=== PATIENT | male | born 1965 | race Caucasian/White ===

== ENCOUNTER 2025-04-21 10:00 | Outpatient (CLI) | payer OTHER, SELFPAY ==
[2025-04-21 15:00] LABS: Hematocrit 38.7 % (42.0-52.0); Hemoglobin 12.0 g/dL (14.1-18.0); Immature Granulocytes % 0 %; Mean Corpuscular HGB Conc 31.0 g/dL (31.8-35.4); Mean Corpuscular Hemoglobin 26.5 pg (27.0-31.2); Mean Corpuscular Volume 85.6 fl (80-94); Nucleated Red Blood Cells % 0 %; Platelet Count 83 K/mm3 (142-424); Red Blood Count 4.52 M/mm3 (4.60-6.20); Red Cell Distribution Width-SD 56.8 fL; White Blood Count 2.7 K/mm3 (4.8-10.8)
[2025-04-21 16:08] LABS: Alanine Aminotransferase 43 U/L (12-78); Albumin Level 3.5 g/dl (3.5-5.0); Albumin/Globulin Ratio 0.6 (1.1-1.8); Alkaline Phosphatase 186 U/L (38-126); Anion Gap 10.2 mEq/L (5-15); Aspartate Amino Transferase 130 U/L (17-59); Bilirubin,Total 2.9 mg/dl (0.2-1.3); Blood Urea Nitrogen 6 mg/dl (9-20); Calcium 8.9 mg/dl (8.4-10.2); Carbon Dioxide 29 mmol/L (22.0-30.0); Chloride 104 mmol/L (98-107); Cholesterol 151 mg/dl (140-200); Creatinine,Serum 0.70 mg/dl (0.66-1.25); Estimated Glomerular Filt Rate 115 ml/min (>60); GFR (African American) 139 ML/MIN (>60); Globulin 5.6 g/dL (1.3-3.2); Glucose 113 mg/dl (74-100); HDL Cholesterol 30 mg/dl (40-60); Potassium 4.2 mmoL/L (3.5-5.1); Sodium 139 mmol/L (136-145); Total Protein,Serum 9.1 g/dl (6.3-8.2); Triglycerides 102 mg/dl (30-150)
[2025-04-21 16:11] LABS: Anisocytosis 1+; Total Cells Counted 100
[2025-04-21 16:12] LABS: Hypochromasia 1+; Macrocytosis 1+; Poikilocytosis 1+; Polychromasia 1+
[2025-04-21 16:13] LABS: Microcytosis 1+
[2025-04-21 16:35] LABS: Thyroid Stimulating Hormone 1.69 uIU/mL (0.465-4.68)
[2025-04-21 16:54] LABS: Vitamin B12 572 pg/mL (239-931)
--- OUTSIDE RECORDS SUMMARY | 2025-04-22 13:06 | XMS_ITS | Clinical Summary ---
Author Organization [facility] [place] Address [address] [facility] [address] [place] [address] Phone Care Team Providers Care Branch Operations Manager Name Role Phone Anthony Barfield Primary Care Provider [phone] Allergies No known active allergies Medications lisinopril (PRINIVIL;ZESTR IL) 10 mg Oral Tablet Take 10 mg by mouth nightly. Active tiZANidine (ZANAFLEX) 4 mg Oral TabletIndicatio ns:prn 4 mg. Indications: prn 6 Active aspirin 325 mg Oral Tablet Take 1 Tab by mouth 2 times daily. 28 Tab 6 Active Additional Information Patient not taking.Reason: Pt electing to not take the medication, Reported on 05/15/2017 food supplement (ENSURE HIGH PROTEIN) Oral Drink 1 bottle or can (8 ounces) of Ensure High Protein by mouth 2 times daily for 9 days. 18 Bottle 6 6 Active Additional Information Patient not taking.Reason: Pt electing to not take the medication, Reported on 05/15/2017 dicyclomine (BENTYL) 20 mg Oral Tablet Take 20 mg by mouth 2 times daily. Active ondansetron (ZOFRAN ODT) 4 mg Oral Tablet, Rapid Dissolve Place 1 Tab inside cheek every 6 hours as needed for Nausea. 20 Tab 7 Active Additional Information Patient not taking.Reason: Pt electing to not take the medication, Reported on 05/15/2017 sodium,potassiu m,mag sulfates 17.5-3.13-1.6 gram Oral Recon Soln Take 6 oz by mouth 2 times daily. Follow instructions given at MD office 1 box 7 Active Additional Information Patient not taking.Reported on 04/22/2019 Active Problems Problem Noted Date Diagnosed Date Primary osteoarthritis of left hip 05/18/2016 Status post left hip replacement 05/18/2016 Essential hypertension 05/18/2016 Alcohol abuse 05/18/2016 Surgical History Surgery Date Site/Laterality Comments COLONOSCOPY HIP ARTHROPLASTY 11/04/2015 Right RIGHT TOTAL HIP REPLACEMENT ; Surgeon: Venu Paul MD; Location: [facility]; Service: Orthopedics Medical devices from this surgery are in the Medical Devices section. HIP ARTHROPLASTY 05/18/2016 Left LEFT TOTAL HIP REPLACEMENT ; Surgeon: Venu Paul MD; Location: [facility]; Service: Orthopedics Medical devices from this surgery are in the Medical Devices section. UPPER GASTROINTESTINAL ENDOSCOPY Medical History Medical History Date Comments Hypertension Heartburn occasional Family History Medical History Relation Name Comments Anesth Problems Neg Hx Colon Cancer Neg Hx Esophageal Cancer Neg Hx Social History Tobacco Use Types Packs/Day Years Used Date Smoking Tobacco: Former Cigarettes Q uit: 11/03/2005 Smokeless Tobacco: Current Chew Alcohol Use Standard Drinks/Week Comments Yes 0 (1 standard drink = 0.6 oz pur e alcohol) at least a twelve pack a day Sex and Gender Information Value Date Recorded Sex Assigned at Not on file Legal Sex Male 3:38 PM EDT Gender Identity Not on file Sexual Orientation Not on file Obstetrics History Last Filed Vital Signs Vital Sign Reading Time Taken Comments Blood Pressure 124/90 04/22/2019 10:27 AM EDT Pulse 75 04/22/2019 10:27 AM EDT Temperature 36.6 C (97.8 F) 04/22/2019 10:27 AM EDT Respiratory Rate 16 04/22/2019 10:2 7 AM EDT Oxygen Saturation 98% 04/22/2019 10: 27 AM EDT Inhaled Oxygen Concentration - - Weight 105.8 kg (233 lb 3.2 oz) 019 10:27 AM EDT Height 180.3 cm (5' 11 ) 04/22/2019 10: 27 AM EDT Body Mass Index 32.52 04/22/2019 10:27 AM EDT Plan of Treatment Health Maintenance Due Date Last Done Comments Annual Wellness Exam 1966 Hepatitis C Screening 1981 DTaP/TDaP/Td (1 - Tdap) 1982 Cologuard 2008 Colon Cancer Screening 2008 Colonoscopy 2008 FIT 2008 Sigmoidoscopy 2008 Virtual Colonography 2008 Pneumococcal Vaccine 50+ (1 of 1 - PCV) 2013 Zoster (1 of 2) 2013 COVID-19 Vaccine (1 - 2023-2 5 season) 2025 Influenza Vaccine (#1) 2025 Hepatitis B Vaccine Aged Out No longe r eligible based on patient's age to complete this topic Meningococcal B Vaccine Aged Out No l onger eligible based on patient's age to complete this topic Goals Goal Patient Goal Type Associated Problems Recent Progress Patient-Stated? Author Blood Pressure < 140/90 Blood Pressure 124/90(2018 10:27 AM EDT) No Maureen Napier MA Maintain a healthy diet, exercise regularly and maintain an ideal body weight General No Maureen Napier MA Stay Tobacco Free Lifestyle No Maureen Napier MA Medical Devices Implanted Type Area A P Manager Device Identifier Shelf Expiration Date Model / Serial / Lot Shell Acetabular Hole Cluster Hemispherical Tritanium F 58mm - [id number] Implanted:Qty: 1 on 11/04/2015 by Venu Paul MD at [facility] Right: Hip EVONNE:ORTHOPED [employer] 08/21/2020 502-03-58F / / [id number] Screw Bone Cancellous 6.5mm X 30mm - [id number] Implanted:Qty: 1 on 11/04/2015 by Venu Paul MD at [facility] Right: Hip EVONNE:ORTHOPED ICS 08/05/2019 4113-6328- 1 / / [id number] Insert Trident X 3 0-Degree 36mm - [id number] Implanted:Qty: 1 on 11/04/2015 by Venu Paul MD at [facility] Right: Hip EVONNE:ORTHOPED ICS 10/13/2020 623-00-36F / / [id number] Stem Femoral Accolade Ii 127 Degree Size 6 - [id number] Implanted:Qty: 1 on 11/04/2015 by Venu Paul MD at [facility] Right: Hip EVONNE:ORTHOPED [facility] 05/26/2020 1909-7722 / / [id number] Head V40 Ceramic Delta Biolox 36mm/-2.5 - [id number] Implanted:Qty: 1 on 11/04/2015 by Venu Paul MD at [facility] Right: Hip EVONNE:ORTHOPED [facility] 08/29/2020 6570-0-436 / / [id number] Stem Femoral Accolade Ii 127 Degree Size 6 - [id number] Implanted:Qty: 1 on 05/18/2016 by Venu Paul MD at [facility] Left: Hip EVONNE:ORTHOPED [facility] 03/08/2021 0303-5052 / / [id number] Shell Acetabular Hole Cluster Hemispherical Tritanium F 58mm - [id number] Implanted:Qty: 1 on 05/18/2016 by Venu Paul MD at [facility] Left: Hip EVONNE:ORTHOPED [facility] 04/25/2021 502-03-58F / / [id number] Insert Trident X 3 0-Degree 36mm - [id number] Implanted:Qty: 1 on 05/18/2016 by Venu Paul MD at [facility] Left: Hip EVONNE:ORTHOPED [facility] 01/08/2021 623-00-36F / / [id number] Screw Bone Cancellous 6.5mm X 30mm - [id number] Implanted:Qty: 1 on 05/18/2016 by Venu Paul MD at [facility] Left: Hip EVONNE:ORTHOPED [facility] 03/21/2021 7465-0091- 1 / / [id number] Head V40 Ceramic Delta Biolox 36mm/-5 - [id number] Implanted:Qty: 1 on 05/18/2016 by Venu Paul MD at [facility] Left: Hip EVONNE:ORTHOPED [employer]CS 03/15/2021 6570-0-036 / / [id number] Advance Directives For more information, please contact: [phone] * Full Code (Latest Code Status on File) Date Activated Date Inactivated Comments 05/18/2016 10:58 AM 05/19/2016 5:47 PM * Full Code Date Activated Date Inactivated Comments 11/04/2015 2:22 PM 11/05/2015 8:06 PM Care Teams Branch Operations Manager Relationship Specialty Start Date End Date Anthony Barfield [address] [place] [address] [address] [place] [id number] PCP - General 05/27/09
== END 2025-04-21 23:59 | disposition home or self-care (01) ==
LOC: LAB.DROPOF 04-22 13:03
PROVIDERS: PCP Nurse Practitioner; Visit Provider Nurse Practitioner
DX: I10 Essential (primary) hypertension (principal); E66.9 Obesity, unspecified; Z86.39 Personal history of other endocrine, nutritional and metabolic disease; Z12.5 Encounter for screening for malignant neoplasm of prostate
CPT/HCPCS: 80053; 80061; 82607; 84443; 85007; 85025; G0103

== ENCOUNTER 2025-04-28 14:20 | Outpatient (CLI) | payer OTHER, SELFPAY ==
--- OUTSIDE RECORDS SUMMARY | 2025-04-28 14:23 | XMS_ITS | Clinical Summary ---
Author Organization [facility] [place] Address [address] [facility] [address] [place] [address] Phone Care Team Providers Care Wiper Blender Name Role Phone Anthony Barfield Primary Care Provider [phone] Allergies No known active allergies Medications lisinopril [...] Napier MA Medical Devices Implanted Type Area [place] Manager Device Identifier Shelf Expiration Date Model / Serial / Lot Shell Acetabular Hole Cluster Hemispherical Tritanium F 58mm - [id number] Implanted:Qty: 1 on 11/04/2015 by Venu Paul MD at [facility] Right: Hip EVONNE:ORTHOPED ICS 08/21/2020 502-03-58F / / [id number] Screw Bone Cancellous 6.5mm X 30mm - [id number] Implanted:Qty: 1 on 11/04/2015 by Venu Paul MD at [facility] Right: Hip EVONNE:ORTHOPED ICS 08/05/2019 1619-9220- 1 / / [id number] Insert Trident X 3 0-Degree 36mm - [id number] Implanted:Qty: 1 on 11/04/2015 by Venu Paul MD at [facility] Right: Hip EVONNE:ORTHOPED ICS 10/13/2020 623-00-36F / / [id number] Stem Femoral Accolade Ii 127 Degree Size 6 - [id number] Implanted:Qty: 1 on 11/04/2015 by Venu Paul MD at [facility] Right: Hip EVONNE:ORTHOPED [facility] 05/26/2020 1966-9835 / / [id number] Head V40 Ceramic Delta Biolox 36mm/-2.5 - [id number] Implanted:Qty: 1 on 11/04/2015 by Venu Paul MD at [facility] Right: Hip EVONNE:ORTHOPED [facility] 08/29/2020 6570-0-436 / / [id number] Stem Femoral Accolade Ii 127 Degree Size 6 - [id number] Implanted:Qty: 1 on 05/18/2016 by Venu Paul MD at [facility] Left: Hip EVONNE:ORTHOPED [facility] 03/08/2021 1302-7135 / / [id number] Shell Acetabular Hole Cluster Hemispherical Tritanium F 58mm - [id number] Implanted:Qty: 1 on 05/18/2016 by Venu Paul MD at [facility] Left: Hip EVONNE:ORTHOPED [facility] 04/25/2021 502-03-58F / / [id number] Insert Trident X 3 0-Degree 36mm - [id number] Implanted:Qty: 1 on 05/18/2016 by Venu Paul MD at [facility] Left: Hip EVONNE:ORTHOPED [facility] 01/08/2021 623-00-36F / / [id number] Screw Bone Cancellous 6.5mm X 30mm - [id number] Implanted:Qty: 1 on 05/18/2016 by Venu Paul MD at [facility] Left: Hip EVONNE:ORTHOPED [facility] 03/21/2021 2972-5130- 1 / / [id number] Head V40 Ceramic Delta Biolox 36mm/-5 - [id number] Implanted:Qty: 1 on 05/18/2016 by Venu Paul MD at [facility] Left: Hip EVONNE:ORTHOPED [employer]CS 03/15/2021 6570-0-036 / / [id number] Advance Directives For more information, please contact: [phone] * Full Code (Latest Code Status on File) Date Activated Date Inactivated Comments 05/18/2016 10:58 AM 05/19/2016 5:47 PM * Full Code Date Activated Date Inactivated Comments 11/04/2015 2:22 PM 11/05/2015 8:06 PM Care Teams Wiper Blender Relationship Specialty Start Date End Date Anthony Barfield [address] [place] [address] [address] [place] [id number] PCP - General 05/27/09
[2025-04-28 16:36] LABS: Reticulocyte % (Auto) 2.5 % (0.9-3.2)
[2025-04-28 17:07] LABS: Iron 77 ug/dL (49-181)
[2025-04-28 17:17] LABS: Total Iron Binding Capacity 322 ug/dL (261-462)
[2025-04-28 17:46] LABS: Ferritin 46.2 ng/ml (17.9-464)
[2025-04-28 18:36] LABS: Folate 10.50 ng/mL
== END 2025-04-28 23:59 | disposition home or self-care (01) ==
PROVIDERS: PCP Nurse Practitioner; Visit Provider Internal Medicine Medical Oncology
DX: D61.818 Other pancytopenia (principal); I10 Essential (primary) hypertension
CPT/HCPCS: 36415; 82043; 82570; 82728; 82746; 83010; 83540; 83550; 83615; 85044; 86880

== ENCOUNTER 2025-05-01 09:42 | Outpatient (CLI) | payer OTHER, SELFPAY ==
--- OUTSIDE RECORDS SUMMARY | 2025-05-01 09:43 | XMS_ITS | Clinical Summary ---
Author Organization [facility] [place] Address [address] [facility] [address] [place] [address] Phone Care Team Providers Care Joinery Machinist Name Role Phone Anthony Barfield Primary Care Provider [phone] Allergies No known active allergies Medications lisinopril [...] Napier MA Medical Devices Implanted Type Area Statistical Engineer Device Identifier Shelf Expiration Date Model / Serial / Lot Shell Acetabular Hole Cluster Hemispherical Tritanium F 58mm - [id number] Implanted:Qty: 1 on 11/04/2015 by Venu Paul MD at [facility] Right: Hip EVONNE:ORTHOPED ICS 08/21/2020 502-03-58F / / [id number] Screw Bone Cancellous 6.5mm X 30mm - [id number] Implanted:Qty: 1 on 11/04/2015 by Venu Paul MD at [facility] Right: Hip EVONNE:ORTHOPED ICS 08/05/2019 6710-7478- 1 / / [id number] Insert Trident X 3 0-Degree 36mm - [id number] Implanted:Qty: 1 on 11/04/2015 by Venu Paul MD at [facility] Right: Hip EVONNE:ORTHOPED ICS 10/13/2020 623-00-36F / / [id number] Stem Femoral Accolade Ii 127 Degree Size 6 - [id number] Implanted:Qty: 1 on 11/04/2015 by Venu Paul MD at [facility] Right: Hip EVONNE:ORTHOPED [facility] 05/26/2020 5691-2723 / / [id number] Head V40 Ceramic Delta Biolox 36mm/-2.5 - [id number] Implanted:Qty: 1 on 11/04/2015 by Venu Paul MD at [facility] Right: Hip EVONNE:ORTHOPED [facility] 08/29/2020 6570-0-436 / / [id number] Stem Femoral Accolade Ii 127 Degree Size 6 - [id number] Implanted:Qty: 1 on 05/18/2016 by Venu Paul MD at [facility] Left: Hip EVONNE:ORTHOPED [facility] 03/08/2021 6439-8960 / / [id number] Shell Acetabular Hole Cluster Hemispherical Tritanium F 58mm - [id number] Implanted:Qty: 1 on 05/18/2016 by Venu Pual MD at [facility] Left: Hip EVONNE:ORTHOPED [facility] 04/25/2021 502-03-58F / / [id number] Insert Trident X 3 0-Degree 36mm - [id number] Implanted:Qty: 1 on 05/18/2016 by Venu Paul MD at [facility] Left: Hip EVONNE:ORTHOPED [facility] 01/08/2021 623-00-36F / / [id number] Screw Bone Cancellous 6.5mm X 30mm - [id number] Implanted:Qty: 1 on 05/18/2016 by Venu Paul MD at [facility] Left: Hip EVONNE:ORTHOPED [facility] 03/21/2021 5622-3828- 1 / / [id number] Head V40 Ceramic Delta Biolox 36mm/-5 - [id number] Implanted:Qty: 1 on 05/18/2016 by Venu Paul MD at [facility] Left: Hip EVONNE:ORTHOPED [employer] 03/15/2021 6570-0-036 / / [id number] Advance Directives For more information, please contact: [phone] * Full Code (Latest Code Status on File) Date Activated Date Inactivated Comments 05/18/2016 10:58 AM 05/19/2016 5:47 PM * Full Code Date Activated Date Inactivated Comments 11/04/2015 2:22 PM 11/05/2015 8:06 PM Care Teams Joinery Machinist Relationship Specialty Start Date End Date Anthony Barfield [address] [place] [address] [address] [place] [id number] PCP - General 05/27/09
--- NOTE | 2025-05-01 10:00 | US_ITS ---
FINAL REPORT TECHNIQUE: Sonographic images of the abdomen were obtained in all four quadrants. CLINICAL HISTORY: elevated LFT s, thrombocytopenia, leukopenia FINDINGS: LIVER: Heterogeneous with a nodular contour. No focal hepatic lesion. Portal vein is patent but there is at least turbulent flow. Intermittent hepatofugal flow not excluded. GALLBLADDER: No gallstones. Echogenic focus along the nondependent gallbladder wall could represent a small polyp. There is a small amount of sludge. No pericholecystic fluid collection or gallbladder wall thickening. The common duct is not visualized. No intrahepatic biliary ductal dilatation. PANCREAS: Obscured RIGHT KIDNEY: 11.7 cm. No hydronephrosis, mass or stone. LEFT KIDNEY: 14.1 cm. No hydronephrosis, mass or stone. SPLEEN: Enlarged measuring 14.3 cm. Perisplenic collaterals are noted. AORTA/IVC: No abdominal aortic aneurysm. Visualized IVC within normal limits. OTHER: No ascites. IMPRESSION: Small nodular liver consistent with cirrhosis. Limited evaluation of the portal vein with perisplenic collaterals suggesting portal hypertension. Splenomegaly. Small gallbladder polyp and sludge. Reviewed, Interpreted and Dictated by Jessica Rutledge MD Transcribed by Em Troy Authenticated and [facility]
== END 2025-05-01 23:59 | disposition home or self-care (01) ==
LOC: RAD 09:42
PROVIDERS: PCP Nurse Practitioner; Visit Provider Nurse Practitioner
DX: K82.8 Other specified diseases of gallbladder (principal); R93.2 Abnormal findings on diagnostic imaging of liver and biliary tract; R16.1 Splenomegaly, not elsewhere classified; D69.6 Thrombocytopenia, unspecified; D72.819 Decreased white blood cell count, unspecified; R74.8 Abnormal levels of other serum enzymes
CPT/HCPCS: 76700

== ENCOUNTER 2025-05-05 15:21 | Outpatient (CLI) | payer OTHER, SELFPAY ==
--- OUTSIDE RECORDS SUMMARY | 2025-05-05 15:25 | XMS_ITS | Clinical Summary ---
Author Organization [facility] [place] Address [address] [facility] [address] [place] [address] Phone Care Team Providers Care Mechanical Engineering Intern Name Role Phone Anthony Barfield Primary Care Provider [phone] Allergies No known active allergies Medications lisinopril [...] on file Sexual Orientation Not on file Last Filed Vital Signs Vital Sign Reading [...] Napier MA Medical Devices Implanted Type Area Mud Analysis Well Logging Captain Device Identifier Shelf Expiration Date Model / Serial / Lot Shell Acetabular Hole Cluster Hemispherical Tritanium F 58mm - [id number] Implanted:Qty: 1 on 11/04/2015 by Venu Paul MD at [facility] Right: Hip EVONNE:ORTHOPED ICS 08/21/2020 502-03-58F / / [id number] Screw Bone Cancellous 6.5mm X 30mm - [id number] Implanted:Qty: 1 on 11/04/2015 by Venu Paul MD at [facility] Right: Hip EVONNE:ORTHOPED ICS 08/05/2019 1270-2526- 1 / / [id number] Insert Trident X 3 0-Degree 36mm - [id number] Implanted:Qty: 1 on 11/04/2015 by Venu Paul MD at [facility] Right: Hip EVONNE:ORTHOPED ICS 10/13/2020 623-00-36F / / [id number] Stem Femoral Accolade Ii 127 Degree Size 6 - [id number] Implanted:Qty: 1 on 11/04/2015 by Venu Paul MD at [facility] Right: Hip EVONNE:ORTHOPED [facility] 05/26/2020 9565-5132 / / [id number] Head V40 Ceramic Delta Biolox 36mm/-2.5 - [id number] Implanted:Qty: 1 on 11/04/2015 by Venu Paul MD at [facility] Right: Hip EVONNE:ORTHOPED [facility] 08/29/2020 6570-0-436 / / [id number] Stem Femoral Accolade Ii 127 Degree Size 6 - [id number] Implanted:Qty: 1 on 05/18/2016 by Venu Paul MD at [facility] Left: Hip EVONNE:ORTHOPED [facility] 03/08/2021 6807-7704 / / [id number] Shell Acetabular Hole Cluster Hemispherical Tritanium F 58mm - [id number] Implanted:Qty: 1 on 05/18/2016 by Venu Paul MD at [facility] Left: Hip EVONNE:ORTHOPED [facility] 04/25/2021 502-03-58F / / [id number] Insert Trident X 3 0-Degree 36mm - [id number] Implanted:Qty: 1 on 05/18/2016 by Venu Paul MD at [facility] Left: Hip EVONNE:ORTHOPED [facility] 01/08/2021 623-00-36F / / [id number] Screw Bone Cancellous 6.5mm X 30mm - [id number] Implanted:Qty: 1 on 05/18/2016 by Venu Paul MD at [facility] Left: Hip EVONNE:ORTHOPED [facility] 03/21/2021 3958-5156- 1 / / [id number] Head V40 Ceramic Delta Biolox 36mm/-5 - [id number] Implanted:Qty: 1 on 05/18/2016 by Venu Paul MD at [facility] Left: Hip EVONNE:ORTHOPED [employer] 03/15/2021 6570-0-036 / / [id number] Advance Directives For more information, please contact: [phone] * Full Code (Latest Code Status on File) Date Activated Date Inactivated Comments 05/18/2016 10:58 AM 05/19/2016 5:47 PM * Full Code Date Activated Date Inactivated Comments 11/04/2015 2:22 PM 11/05/2015 8:06 PM Care Teams Mechanical Engineering Intern Relationship Specialty Start Date End Date Anthony Barfield [address] [place] [address] [address] [place] [id number] PCP - General 05/27/09
[2025-05-05] MEDS: IOPAMIDOL-370 (76%);100ML BOTTLE 75 ML IV (15:37)
[2025-05-05] MEDS: SODIUM CHLORIDE 0.9% 10ML SYR (RAD ONLY) 10 ML IV (15:37)
--- NOTE | 2025-05-05 15:45 | CT_ITS ---
FINAL REPORT TECHNIQUE: Axial CT images of the abdomen were obtained with IV contrast only. Coronal reformatted images were also obtained. This study was performed with techniques to keep radiation doses as low as reasonably achievable (ALARA). Individualized dose reduction techniques using automated exposure control or adjustment of mA and/or kV according to the patient''s size were employed. CLINICAL HISTORY: SPLENOMEGALY COMPARISON: 03/13/2017 FINDINGS: The lung bases are clear. The liver has extensive nodular peripheral margin consistent with cirrhosis. The gallbladder appears normal without evidence of gallstones. There is no evidence of biliary ductal dilatation. The pancreas appears normal. There is moderate splenomegaly with the spleen measuring 14.8 cm. There is no evidence of renal mass or hydronephrosis. There is a multitude of large varices throughout the upper abdomen, particularly in the left upper quadrant. There is marked enlargement of the infrarenal vein measuring up to 3.8 cm in diameter. IMPRESSION: Significant interval progression of cirrhosis. Increased splenomegaly. Marked increase in formation of varices. Reviewed, Interpreted and Dictated by Félix Gomez MD Transcribed by Em Troy Authenticated and [facility]
== END 2025-05-05 23:59 | disposition home or self-care (01) ==
LOC: RAD 15:22
PROVIDERS: PCP Nurse Practitioner; Visit Provider Internal Medicine Medical Oncology
DX: K74.60 Unspecified cirrhosis of liver (principal); R16.1 Splenomegaly, not elsewhere classified; I86.8 Varicose veins of other specified sites; D61.818 Other pancytopenia
CPT/HCPCS: 74160; Q9967

== ENCOUNTER 2025-05-11 09:56 | Outpatient (CLI) | payer OTHER, SELFPAY ==
--- OUTSIDE RECORDS SUMMARY | 2025-05-11 10:00 | XMS_ITS | Clinical Summary ---
Author Organization [facility] [place] Address [address] [facility] [address] [place] [address] Phone Care Team Providers Care Chief Engineer Waterworks Name Role Phone Anthony Barfield Primary Care Provider [phone] Allergies No known active allergies Medications lisinopril [...] Napier MA Medical Devices Implanted Type Area Ball Mill Operator Device Identifier Shelf Expiration Date Model / Serial / Lot Shell Acetabular Hole Cluster Hemispherical Tritanium F 58mm - [id number] Implanted:Qty: 1 on 11/04/2015 by Venu Paul MD at [facility] Right: Hip EVONNE:ORTHOPED [employer] 08/21/2020 502-03-58F / / [id number] Screw Bone Cancellous 6.5mm X 30mm - [id number] Implanted:Qty: 1 on 11/04/2015 by Venu Paul MD at [facility] Right: Hip EVONNE:ORTHOPED [employer]CS 08/05/2019 4357-3748- 1 / / [id number] Insert Trident X 3 0-Degree 36mm - [id number] Implanted:Qty: 1 on 11/04/2015 by Venu Paul MD at [facility] Right: Hip EVONNE:ORTHOPED [employer]CS 10/13/2020 623-00-36F / / [id number] Stem Femoral Accolade Ii 127 Degree Size 6 - [id number] Implanted:Qty: 1 on 11/04/2015 by Venu Paul MD at [facility] Right: Hip EVONNE:ORTHOPED [facility] 05/26/2020 1571-4301 / / [id number] Head V40 Ceramic Delta Biolox 36mm/-2.5 - [id number] Implanted:Qty: 1 on 11/04/2015 by Venu Paul MD at [facility] Right: Hip EVONNE:ORTHOPED [facility] 08/29/2020 6570-0-436 / / [id number] Stem Femoral Accolade Ii 127 Degree Size 6 - [id number] Implanted:Qty: 1 on 05/18/2016 by Venu Paul MD at [facility] Left: Hip EVONNE:ORTHOPED [facility] 03/08/2021 4621-8396 / / [id number] Shell Acetabular Hole Cluster Hemispherical Tritanium F 58mm - [id number] Implanted:Qty: 1 on 05/18/2016 by Venu Paul MD at [facility] Left: Hip EVONNE:ORTHOPED [facility] 04/25/2021 502-03-58F / / [id number] Insert Trident X 3 0-Degree 36mm - [id number] Implanted:Qty: 1 on 05/18/2016 by Venu Paul MD at [facility] Left: Hip EVONNE:ORTHOPED [facility] 01/08/2021 623-00-36F / / [id number] Screw Bone Cancellous 6.5mm X 30mm - [id number] Implanted:Qty: 1 on 05/18/2016 by Venu Paul MD at [facility] Left: Hip EVONNE:ORTHOPED [facility] 03/21/2021 1590-1559- 1 / / [id number] Head V40 Ceramic Delta Biolox 36mm/-5 - [id number] Implanted:Qty: 1 on 05/18/2016 by Venu Paul MD at [facility] Left: Hip EVONNE:ORTHOPED [employer] 03/15/2021 6570-0-036 / / [id number] Advance Directives For more information, please contact: [phone] * Full Code (Latest Code Status on File) Date Activated Date Inactivated Comments 05/18/2016 10:58 AM 05/19/2016 5:47 PM * Full Code Date Activated Date Inactivated Comments 11/04/2015 2:22 PM 11/05/2015 8:06 PM Care Teams Chief Engineer Waterworks Relationship Specialty Start Date End Date Anthony Barfield [address] [place] [address] [address] [place] [id number] PCP - General 05/27/09
[2025-05-11 10:27] LABS: Hematocrit 36.5 % (42.0-52.0); Hemoglobin 11.6 g/dL (14.1-18.0); Immature Granulocytes % 0 %; Mean Corpuscular HGB Conc 31.8 g/dL (31.8-35.4); Mean Corpuscular Hemoglobin 27.6 pg (27.0-31.2); Mean Corpuscular Volume 86.7 fl (80-94); Nucleated Red Blood Cells % 0 %; Platelet Count 98 K/mm3 (142-424); Red Blood Count 4.21 M/mm3 (4.60-6.20); Red Cell Distribution Width-SD 52.8 fL; White Blood Count 3.4 K/mm3 (4.8-10.8)
[2025-05-11 10:35] LABS: INR 1.34 (0.9-1.1); Prothrombin Time 14.6 seconds (10.1-12.5)
[2025-05-11 11:16] LABS: Ammonia 57 umol/L (9-30)
[2025-05-11 11:43] LABS: Alanine Aminotransferase 57 U/L (12-78); Albumin Level 3.1 g/dl (3.5-5.0); Albumin/Globulin Ratio 0.7 (1.1-1.8); Alkaline Phosphatase 142 U/L (38-126); Anion Gap 8.7 mEq/L (5-15); Aspartate Amino Transferase 102 U/L (17-59); Bilirubin,Total 2.7 mg/dl (0.2-1.3); Blood Urea Nitrogen 5 mg/dl (9-20); Calcium 8.2 mg/dl (8.4-10.2); Carbon Dioxide 27 mmol/L (22.0-30.0); Chloride 107 mmol/L (98-107); Creatinine,Serum 0.70 mg/dl (0.66-1.25); Estimated Glomerular Filt Rate 115 ml/min (>60); GFR (African American) 139 ML/MIN (>60); Globulin 4.7 g/dL (1.3-3.2); Glucose 103 mg/dl (74-100); Potassium 3.7 mmoL/L (3.5-5.1); Sodium 139 mmol/L (136-145); Total Protein,Serum 7.8 g/dl (6.3-8.2)
[2025-05-11 15:41] LABS: Iron 74 ug/dL (49-181)
[2025-05-11 15:53] LABS: Total Iron Binding Capacity 304 ug/dL (261-462)
[2025-05-11 16:23] LABS: Ferritin 32.2 ng/ml (17.9-464)
== END 2025-05-11 23:59 | disposition home or self-care (01) ==
LOC: LAB 09:56
PROVIDERS: PCP Nurse Practitioner; Visit Provider Nurse Practitioner Family
DX: K70.30 Alcoholic cirrhosis of liver without ascites (principal)
CPT/HCPCS: 36415; 80053; 80074; 82140; 82172; 82247; 82465; 82728; 82947; 82977; 83010; 83521; 83540; 83550; 84450; 84460; 84478; 85025; 85610

== ENCOUNTER 2025-05-27 11:02 | Outpatient (CLI) | payer OTHER, SELFPAY ==
[2025-05-27 11:34] LABS: Ammonia 65 umol/L (9-30)
--- OUTSIDE RECORDS SUMMARY | 2025-05-27 11:42 | XMS_ITS | Clinical Summary ---
Author Organization [facility] [place] Address [address] [facility] [address] [place] [address] Phone Care Team Providers Care Liberal Arts Teacher Name Role Phone Anthony Barfield Primary Care Provider [phone] Allergies No known active allergies Medications lisinopril [...] of 2) 2013 COVID-19 Vaccine (1 - 2024-2 6 season) 2025 Influenza Vaccine (#1) 2025 Hepatitis [...] [place] Medical Devices Implanted Type Area Junior Administrative Assistant Device Identifier Shelf Expiration Date Model / Serial / Lot Shell Acetabular Hole Cluster Hemispherical Tritanium F 58mm - [id number] Implanted:Qty: 1 on 11/04/2015 by Venu Paul MD at [facility] Right: Hip EVONNE:ORTHOPED ICS 08/21/2020 502-03-58F / / [id number] Screw Bone Cancellous 6.5mm X 30mm - [id number] Implanted:Qty: 1 on 11/04/2015 by Venu Paul MD at [facility] Right: Hip EVONNE:ORTHOPED ICS 08/05/2019 9545-0334- 1 / / [id number] Insert Trident X 3 0-Degree 36mm - [id number] Implanted:Qty: 1 on 11/04/2015 by Venu Paul MD at [facility] Right: Hip EVONNE:ORTHOPED ICS 10/13/2020 623-00-36F / / [id number] Stem Femoral Accolade Ii 127 Degree Size 6 - [id number] Implanted:Qty: 1 on 11/04/2015 by Venu Paul MD at [facility] Right: Hip EVONNE:ORTHOPED [facility] 05/26/2020 1168-1497 / / [id number] Head V40 Ceramic Delta Biolox 36mm/-2.5 - [id number] Implanted:Qty: 1 on 11/04/2015 by Venu Paul MD at [facility] Right: Hip EVONNE:ORTHOPED [facility] 08/29/2020 6570-0-436 / / [id number] Stem Femoral Accolade Ii 127 Degree Size 6 - [id number] Implanted:Qty: 1 on 05/18/2016 by Venu Paul MD at [facility] Left: Hip EVONNE:ORTHOPED [facility] 03/08/2021 0520-7692 / / [id number] Shell Acetabular Hole Cluster Hemispherical Tritanium F 58mm - [id number] Implanted:Qty: 1 on 05/18/2016 by Venu Paul MD at [facility] Left: Hip EVONNE:ORTHOPED [facility] 04/25/2021 502-03-58F / / [id number] Insert Trident X 3 0-Degree 36mm - [id number] Implanted:Qty: 1 on 05/18/2016 by Venu Paul MD at [facility] Left: Hip EVONNE:ORTHOPED [facility] 01/08/2021 623-00-36F / / [id number] Screw Bone Cancellous 6.5mm X 30mm - [id number] Implanted:Qty: 1 on 05/18/2016 by Venu Paul MD at [facility] Left: Hip EVONNE:ORTHOPED [facility] 03/21/2021 7117-0521- 1 / / [id number] Head V40 Ceramic Delta Biolox 36mm/-5 - [id number] Implanted:Qty: 1 on 05/18/2016 by Venu Paul MD at [facility] Left: Hip EVONNE:ORTHOPED ICS 03/15/2021 6570-0-036 / / [id number] Advance Directives For more information, please contact: [phone] * Full Code (Latest Code Status on File) Date Activated Date Inactivated Comments 05/18/2016 10:58 AM 05/19/2016 5:47 PM * Full Code Date Activated Date Inactivated Comments 11/04/2015 2:22 PM 11/05/2015 8:06 PM Care Teams Liberal Arts Teacher Relationship Specialty Start Date End Date Anthony Barfield [address] [place] [address] [address] [place] [id number] PCP - General 05/27/09
== END 2025-05-27 23:59 | disposition home or self-care (01) ==
LOC: LAB 11:04
PROVIDERS: PCP Nurse Practitioner; Visit Provider Nurse Practitioner Family
DX: K70.30 Alcoholic cirrhosis of liver without ascites (principal)
CPT/HCPCS: 36415; 82140

== ENCOUNTER 2025-06-01 08:29 | Day surgery (SDC) | payer OTHER, SELFPAY ==
--- NOTE | 2025-05-28 07:23 | EXP.HP ---
History of Present Illness *Admission Date: 06/01/25 *History of present illness: Mr. Dukes is a 59-year-old gentleman who is here for diagnostic EGD. 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 He does have pancytopenia/thrombocytopenia and his CAT scan had noted cirrhosis with multiple large varices throughout the upper abdomen. The examination is deemed medically necessary for diagnostic EGD. The patient has been seen, interviewed and examined prior to the procedure by both myself and the anesthesia provider. [facility] Disclaimer: The information contained in this section may have been updated after the patient was seen, as this information can be updated by other users. Medical History Leukopenia Thrombocytopenia Elevated liver enzymes Obesity Screening for malignant neoplasm of prostate declined (~03/06/24) Screening for malignant neoplasm of colon declined (~03/06/24) Blood test declined (~03/06/24) Dermatitis Osteoarthritis Hypertension Post-COVID chronic cough Surgical History History of right hip replacement History of left hip replacement Family History Other Hypertension Social History Smoking Status: Smoker, status unknown tobacco type: smokeless tobacco alcohol intake: current alcohol intake frequency: 3 or more drinks per day substance use type: denies use current occupational status: employed Travel in the last 8 weeks?: None Have you lived/traveled outside US in past 30 days?: No Contact w/someone who lives/traveled outside US past 30 days?: No Exposure to someone with infectious disease in past 14 days?: No Do you have a fever (greater than 100.4 F or 38 C)?: No Have you tested positive for COVID-19?: No Exposed to someone with COVID-19 in past 14 days?: No Do you have a sore throat?: No Do you have a cough?: No Do you have any weakness?: No Do you have any diarrhea?: No Are you experiencing any unusual bleeding?: No Do you have any muscle aches/pain?: No Do you have any abdominal pain?: No Are you experiencing loss of taste or smell?: No Review of Systems Review of Systems Review of systems (narrative): Negative *Cardiovascular Comments: Negative *Gastrointestinal Comments: Negative *Genitourinary Comments: Negative *Musculoskeletal Comments: Negative *Neurologic Comments: Negative Meds Home Medications and Allergies Home Medications ?Medication ?Instructions ?Recorded ?Confirmed ?Type losartan 100 1 tab PO DAILY #90 tabs 04/21/25 06/01/25 Rx mg-hydrochlorothiazide 25 mg tablet naproxen 500 mg tablet 500 mg PO BID PRN Pain 04/21/25 06/01/25 History triamcinolone acetonide 0.1 % 1 applic topical TID #453.6 grams 04/21/25 05/28/25 Rx topical cream lisinopril 20 mg tablet 25 mg PO DAILY 04/28/25 06/01/25 History nadolol 20 mg tablet 20 mg PO DAILY #90 tabs 05/06/25 06/01/25 Rx lactulose 10 gram/15 mL oral 15 ml PO TID #1,500 mL 05/26/25 06/01/25 Rx solution New Prescriptions to Start Prescriptions: Allergies Allergy/AdvReac Type Severity Reaction Status Date / Time No Known Allergies Allergy Verified 06/01/25 08:53 Exam *Routine HEENT Exam Head: Present normocephalic Eye: Present EOMI and PERRL ENT: Present mucous membranes moist *Routine Neck Exam Neck: Present supple *Routine Respiratory Exam Respiratory: Present CTA bilaterally *Routine Cardiovascular Exam Cardiovascular: Present RRR *Routine Abdominal Exam Abdominal: Present soft and normoactive bowel sounds; Absent tenderness *Routine Rectal Exam Rectal:: deferred *Routine Genitalia Exam Genitalia:: deferred *Routine Extremities Exam Extremities: Absent cyanosis, clubbing or edema *Routine Skin Exam Skin: Present warm; Absent rash *Routine Neurological Exam Neurological: Present alert and oriented X3 Assessment and Plan *Assessment and plan (1) Portal hypertension: Status: Acute Category: Medical Code(s): K76.6 - Portal hypertension (2) Alcoholic cirrhosis of liver: Status: Acute Category: Medical Code(s): K70.30 - Alcoholic cirrhosis of liver without ascites (3) Spleen enlarged: Status: Acute Category: Medical Code(s): R16.1 - Splenomegaly, not elsewhere classified (4) Esophageal varices in alcoholic cirrhosis: Status: Acute Category: Medical Code(s): K70.30 - Alcoholic cirrhosis of liver without ascites; I85.10 - Secondary esophageal varices without bleeding Plan A/P: 1. Alcoholic cirrhosis/La?nnec cirrhosis with portal hypertension and multiple large varices in the upper abdomen is the preprocedural diagnosis. There is suspected esophageal varices and possible gastric varices and the patient has not had prior upper endoscopy. The patient will be anesthetized/sedated using MAC sedation. The patient has been seen and examined. Cardiac and lung assessment prior to the examination is stable. Proceed with planned diagnostic EGD.
[2025-05-28 13:40] VITALS: BMI 33.5
--- NOTE | 2025-06-01 07:03 | HMH.PROCNOTE ---
[facility] Procedure Note Date: 06/01/25 Time: 10:02 Procedure Note:: Upper Endoscopy Procedure Report: Esophagogastroduodenoscopy with cold biopsies Endoscopost: Arie Terry II, MD Referring Physician: ASHA Chaidez Date of Procedure: June 01, 2025 Equipment: Olympus GIF-1100 standard upper endoscope Sedation: MAC sedation Indications: Mr. Dukes is a 59-year-old gentleman who is here for diagnostic EGD. 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 He does have pancytopenia/thrombocytopenia and his CAT scan had noted cirrhosis with multiple large varices throughout the upper abdomen. The patient reports no melena or hematemesis. He reports no heartburn, reflux or dysphagia. He reports no epigastric abdominal pain, bloating or abdominal distention. He does have some chronic constipation. The examination is deemed medically necessary for diagnostic EGD. Procedure: Prior to the procedure, a history and physical exam was performed, and patient's medications and allergies were reviewed. The risks, benefits and alternatives of the sedation and procedure were discussed with the patient. All questions were answered and informed consent was obtained. The patient was brought to the procedure room. Patient identification and proposed procedure were verified by the physician and the nurse. The patient was placed in a left lateral decubitus position and the scope was passed under direct vision. Throughout the procedure, the patient's blood pressure, pulse, and oxygen saturations were monitored continuously. The upper GI endoscopy was accomplished without difficulty. The patient tolerated the procedure well. Findings: The scope was passed directly into the upper esophagus and advanced to the third portion of the duodenum. The post bulbar duodenum and duodenal bulb were normal with normal mucosa and conniventes. The scope was withdrawn through a normal duodenal bulb and pylorus into the stomach. There was bile reflux with mild linear reactive gastropathy of the antrum. There was mosaic and reticular mucosal pattern to the body and fundus and biopsies were obtained to rule out H. pylori. Upon retroflexion there were no gastric fundic varices. There was a very small 1 to 2 cm hiatal hernia. The scope was then withdrawn into the esophagus. There were 2 tongues of salmon-colored mucosa distally consistent with short segment River's esophagus. Narrowband imaging was utilized to take directed biopsies. There was no evidence of esophageal varices or reflux esophagitis. The remainder of the esophageal mucosa was normal. Impression: 1. 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 Bile reflux with antral reactive gastropathy and proximal gastritis or gastropathy (portal gastropathy) Plan: I will follow-up the biopsies. There was no evidence of gastric or esophageal varices but there was evidence of portal hypertension and varices on CAT scan. Most importantly, he will need to avoid alcohol and NSAIDs with his advanced hepatic fibrosis and cirrhosis.
[2025-06-01 08:56] VITALS: BP 166/87; PULSE 55; RESP 18; TEMP 36.4; O2SAT 97
[2025-06-01] MEDS: LACTATED RINGERS 1000ML 1,000 ML 50 ML IV (09:13)
--- NOTE | 2025-06-01 09:38 | P.PNANES_ITS ---
[facility] Disclaimer: The information contained in this section may have been updated after the patient was seen, as this information can be updated by other users. Medical History Leukopenia Thrombocytopenia Elevated liver enzymes Obesity Screening for malignant neoplasm of prostate declined (~03/06/24) Screening for malignant neoplasm of colon declined (~03/06/24) Blood test declined (~03/06/24) Dermatitis Osteoarthritis Hypertension Post-COVID chronic cough Surgical History History of right hip replacement History of left hip replacement Family History Other Hypertension Social History Smoking Status: Smoker, status unknown tobacco type: smokeless tobacco alcohol intake: current alcohol intake frequency: 3 or more drinks per day substance use type: denies use current occupational status: employed Travel in the last 8 weeks?: None Have you lived/traveled outside US in past 30 days?: No Contact w/someone who lives/traveled outside US past 30 days?: No Exposure to someone with infectious disease in past 14 days?: No Do you have a fever (greater than 100.4 F or 38 C)?: No Have you tested positive for COVID-19?: No Exposed to someone with COVID-19 in past 14 days?: No Do you have a sore throat?: No Do you have a cough?: No Do you have any weakness?: No Do you have any diarrhea?: No Are you experiencing any unusual bleeding?: No Do you have any muscle aches/pain?: No Do you have any abdominal pain?: No Are you experiencing loss of taste or smell?: No [facility] Anesthesia Checklist Patient Identification Patient Identification: Arm Band and Verbal (Name & ) Structural Data Admitted From: Home Planned Operative Procedure/s: EGD Consent for Planned Operative Procedure(s) Verified: Yes Verified Documents: Surgical Consent and History and Physical NPO Status Verified Time NPO: 00:00 Additional verifications Anesthesia Reactions: No Previous Colonoscopy: Yes Airway Assessment Mallampati Score:: Class II Dentition: Poor Dentition Neurological Assessment Level of Consciousness: Awake, Alert and Appropriate Hx Seizures: No Numbness or tingling in extremities: No Anesthesia Plan Anesthesia Risk discussed: Yes Anesthesia Plan: Verified ASA Class: II Anesthesia Type: MAC
[2025-06-01 10:02] VITALS: BP 119/78; PULSE 53; RESP 16; TEMP 36.3; O2SAT 95
[2025-06-01 10:12] VITALS: BP 116/71; PULSE 53; RESP 18; TEMP 36.3; O2SAT 97
[2025-06-01 10:22] VITALS: BP 130/74; PULSE 54; RESP 18; TEMP 36.3; O2SAT 97
[2025-06-01 10:32] VITALS: BP 145/76; PULSE 60; RESP 18; TEMP 36.3; O2SAT 97
[2025-06-01 10:59] LABS: Hematocrit 34.8 % (42.0-52.0); Hemoglobin 11.2 g/dL (14.1-18.0); Immature Granulocytes % 0 %; Mean Corpuscular HGB Conc 32.2 g/dL (31.8-35.4); Mean Corpuscular Hemoglobin 27.6 pg (27.0-31.2); Mean Corpuscular Volume 85.7 fl (80-94); Nucleated Red Blood Cells % 0 %; Platelet Count 78 K/mm3 (142-424); Red Blood Count 4.06 M/mm3 (4.60-6.20); Red Cell Distribution Width-SD 49.1 fL; White Blood Count 3.1 K/mm3 (4.8-10.8)
[2025-06-01 11:12] LABS: Albumin Level 2.4 g/dl (3.5-5.0); Chloride 105 mmol/L (98-107); Potassium 3.5 mmoL/L (3.5-5.1); Sodium 135 mmol/L (136-145)
[2025-06-01 11:15] LABS: Alanine Aminotransferase 40 U/L (12-78); Albumin/Globulin Ratio 0.4 (1.1-1.8); Alkaline Phosphatase 135 U/L (38-126); Anion Gap 6.5 mEq/L (5-15); Aspartate Amino Transferase 75 U/L (17-59); Bilirubin,Total 1.9 mg/dl (0.2-1.3); Blood Urea Nitrogen 7 mg/dl (9-20); Calcium 8.0 mg/dl (8.4-10.2); Carbon Dioxide 27 mmol/L (22.0-30.0); Creatinine Clearance Estimated 119 mL/min (50-200); Creatinine,Serum 0.70 mg/dl (0.66-1.25); Estimated Glomerular Filt Rate 115 ml/min (>60); GFR (African American) 139 ML/MIN (>60); Globulin 5.5 g/dL (1.3-3.2); Glucose 104 mg/dl (74-100); Total Protein,Serum 7.9 g/dl (6.3-8.2)
[2025-06-01 11:26] LABS: INR 1.36 (0.9-1.1); Prothrombin Time 14.8 seconds (10.1-12.5)
[2025-06-01 12:08] LABS: Total Cells Counted 100
[2025-06-01 12:09] LABS: Hypochromasia 2+
== END 2025-06-01 10:32 | disposition home or self-care (01) ==
PROVIDERS: PCP Nurse Practitioner; Visit Provider Internal Medicine Gastroenterology
PROC: 0DJ08ZZ Inspection of Upper Intestinal Tract, Via Natural or Artificial Opening Endoscopic (ICD-10-PCS; CPT 43239; principal; 2025-06-01 10:00)
DX: K21.9 Gastro-esophageal reflux disease without esophagitis (principal); K44.9 Diaphragmatic hernia without obstruction or gangrene; K31.89 Other diseases of stomach and duodenum; K22.10 Ulcer of esophagus without bleeding; F17.290 Nicotine dependence, other tobacco product, uncomplicated; I10 Essential (primary) hypertension; M19.90 Unspecified osteoarthritis, unspecified site; K76.6 Portal hypertension; K70.30 Alcoholic cirrhosis of liver without ascites; F10.10 Alcohol abuse, uncomplicated; D61.818 Other pancytopenia; K59.09 Other constipation
CPT/HCPCS: 43239; 36415; 80053; 85007; 85025; 85027; 85610; J2003; J2704; J7120

== ENCOUNTER 2025-06-08 11:46 | Outpatient (CLI) | payer OTHER, SELFPAY ==
--- OUTSIDE RECORDS SUMMARY | 2025-06-08 11:47 | XMS_ITS | Clinical Summary ---
Author Organization [facility] [place] Address [address] [facility] [address] [place] [address] Phone Care Team Providers Care Lease Picker Name Role Phone Anthony Barfield Primary Care Provider Allergies No known active allergies Medications lisinopril [...] [place] MA Medical Devices Implanted Type Area Well Reactivator Operator Device Identifier Shelf Expiration Date Model / Serial / Lot Shell Acetabular Hole Cluster Hemispherical Tritanium F 58mm - [id number] Implanted:Qty: 1 on 11/04/2015 by Venu Paul MD at [facility] Right: Hip EVONNE:ORTHOPED ICS 08/21/2020 502-03-58F / / [id number] Screw Bone Cancellous 6.5mm X 30mm - [id number] Implanted:Qty: 1 on 11/04/2015 by Venu Paul MD at [facility] Right: Hip EVONNE:ORTHOPED ICS 08/05/2019 6432-5989- 1 / / [id number] Insert Trident X 3 0-Degree 36mm - [id number] Implanted:Qty: 1 on 11/04/2015 by Venu Paul MD at [facility] Right: Hip EVONNE:ORTHOPED ICS 10/13/2020 623-00-36F / / [id number] Stem Femoral Accolade Ii 127 Degree Size 6 - [id number] Implanted:Qty: 1 on 11/04/2015 by Venu Paul MD at [facility] Right: Hip EVONNE:ORTHOPED [facility] 05/26/2020 9899-0780 / / [id number] Head V40 Ceramic Delta Biolox 36mm/-2.5 - [id number] Implanted:Qty: 1 on 11/04/2015 by Venu Paul MD at [facility] Right: Hip EVONNE:ORTHOPED [facility] 08/29/2020 6570-0-436 / / [id number] Stem Femoral Accolade Ii 127 Degree Size 6 - [id number] Implanted:Qty: 1 on 05/18/2016 by Venu Paul MD at [facility] Left: Hip EVONNE:ORTHOPED [facility] 03/08/2021 3470-1908 / / [id number] Shell Acetabular Hole Cluster Hemispherical Tritanium F 58mm - [id number] Implanted:Qty: 1 on 05/18/2016 by Venu Paul MD at [facility] Left: Hip EVONNE:ORTHOPED [facility] 04/25/2021 502-03-58F / / [id number] Insert Trident X 3 0-Degree 36mm - [id number] Implanted:Qty: 1 on 05/18/2016 by Venu Paul MD at [facility] Left: Hip EVONNE:ORTHOPED [facility] 01/08/2021 623-00-36F / / [id number] Screw Bone Cancellous 6.5mm X 30mm - [id number] Implanted:Qty: 1 on 05/18/2016 by Venu Paul MD at [facility] Left: Hip EVONNE:ORTHOPED [facility] 03/21/2021 9196-5176- 1 / / [id number] Head V40 Ceramic Delta Biolox 36mm/-5 - [id number] Implanted:Qty: 1 on 05/18/2016 by Venu Paul MD at [facility] Left: Hip EVONNE:ORTHOPED ICS 03/15/2021 6570-0-036 / / [id number] Advance Directives For more information, please contact: [phone] * Full Code (Latest Code Status on File) Date Activated Date Inactivated Comments 05/18/2016 10:58 AM 05/19/2016 5:47 PM * Full Code Date Activated Date Inactivated Comments 11/04/2015 2:22 PM 11/05/2015 8:06 PM Care Teams Lease Picker Relationship Specialty Start Date End Date Anthony Barfield [address] [place] [address] [address] [place] [id number] PCP - General 05/27/09
[2025-06-08 12:29] LABS: Ammonia 63 umol/L (9-30)
== END 2025-06-08 23:59 | disposition home or self-care (01) ==
LOC: LAB 11:46
PROVIDERS: PCP Nurse Practitioner; Visit Provider Nurse Practitioner Family
DX: K70.30 Alcoholic cirrhosis of liver without ascites (principal)
CPT/HCPCS: 36415; 82140

== ENCOUNTER 2025-08-05 15:16 | Outpatient (CLI) | payer OTHER, SELFPAY ==
--- OUTSIDE RECORDS SUMMARY | 2025-08-05 15:19 | XMS_ITS | Clinical Summary ---
Author Organization [facility] [place] Address [address] [facility] [address] [place] [address] Phone Care Team Providers Care Heat Treat Worker Name Role Phone Anthony Barfield Primary Care Provider [phone] Allergies No known active allergies Medications lisinopril [...] [place]ier MA Medical Devices Implanted Type Area [employer] Magistrate Device Identifier Shelf Expiration Date Model / Serial / Lot Shell Acetabular Hole Cluster Hemispherical Tritanium F 58mm - [id number] Implanted:Qty: 1 on 11/04/2015 by Venu Paul MD at [facility] Right: Hip EVONEN:ORTHOPED ICS 08/21/2020 502-03-58F / / [id number] Screw Bone Cancellous 6.5mm X 30mm - [id number] Implanted:Qty: 1 on 11/04/2015 by Venu Paul MD at [facility] Right: Hip EVONNE:ORTHOPED ICS 08/05/2019 0516-4482- 1 / / [id number] Insert Trident X 3 0-Degree 36mm - [id number] Implanted:Qty: 1 on 11/04/2015 by Venu Paul MD at [facility] Right: Hip EVONNE:ORTHOPED ICS 10/13/2020 623-00-36F / / [id number] Stem Femoral Accolade Ii 127 Degree Size 6 - [id number] Implanted:Qty: 1 on 11/04/2015 by Venu Paul MD at [facility] Right: Hip EVONNE:ORTHOPED [facility] 05/26/2020 6139-4323 / / [id number] Head V40 Ceramic Delta Biolox 36mm/-2.5 - [id number] Implanted:Qty: 1 on 11/04/2015 by Venu Paul MD at [facility] Right: Hip EVONNE:ORTHOPED [facility] 08/29/2020 6570-0-436 / / [id number] Stem Femoral Accolade Ii 127 Degree Size 6 - [id number] Implanted:Qty: 1 on 05/18/2016 by Venu Paul MD at [facility] Left: Hip EVONNE:ORTHOPED [facility] 03/08/2021 7297-9770 / / [id number] Shell Acetabular Hole Cluster Hemispherical Tritanium F 58mm - [id number] Implanted:Qty: 1 on 05/18/2016 by Venu Paul MD at [facility] Left: Hip EVONNE:ORTHOPED [facility] 04/25/2021 502-03-58F / / [id number] Insert Trident X 3 0-Degree 36mm - [id number] Implanted:Qty: 1 on 05/18/2016 by Venu Paul MD at [facility] Left: Hip EVONNE:ORTHOPED [facility] 01/08/2021 623-00-36F / / [id number] Screw Bone Cancellous 6.5mm X 30mm - [id number] Implanted:Qty: 1 on 05/18/2016 by Venu Paul MD at [facility] Left: Hip EVONNE:ORTHOPED [facility] 03/21/2021 4360-3271- 1 / / [id number] Head V40 Ceramic Delta Biolox 36mm/-5 - [id number] Implanted:Qty: 1 on 05/18/2016 by Venu Paul MD at [facility] Left: Hip EVONNE:ORTHOPED ICS 03/15/2021 6570-0-036 / / [id number] Advance Directives For more information, please contact: [phone] * Full Code (Latest Code Status on File) Date Activated Date Inactivated Comments 05/18/2016 10:58 AM 05/19/2016 5:47 PM * Full Code Date Activated Date Inactivated Comments 11/04/2015 2:22 PM 11/05/2015 8:06 PM Care Teams Heat Treat Worker Relationship Specialty Start Date End Date Anthony Barfield [address] [place] [address] [address] [place] [id number] PCP - General 05/27/09
[2025-08-05 15:58] LABS: Ammonia 88 umol/L (9-30)
[2025-08-05 16:25] LABS: Alanine Aminotransferase 26 U/L (12-78); Albumin Level 3.3 g/dl (3.5-5.0); Albumin/Globulin Ratio 0.6 (1.1-1.8); Alkaline Phosphatase 207 U/L (38-126); Anion Gap 9.7 mEq/L (5-15); Aspartate Amino Transferase 57 U/L (17-59); Bilirubin,Total 2.3 mg/dl (0.2-1.3); Blood Urea Nitrogen 9 mg/dl (9-20); Calcium 8.7 mg/dl (8.4-10.2); Carbon Dioxide 26 mmol/L (22.0-30.0); Chloride 103 mmol/L (98-107); Creatinine,Serum 0.80 mg/dl (0.66-1.25); Estimated Glomerular Filt Rate 98 ml/min (>60); GFR (African American) 119 ML/MIN (>60); Globulin 5.3 g/dL (1.3-3.2); Glucose 109 mg/dl (74-100); Potassium 3.7 mmoL/L (3.5-5.1); Sodium 135 mmol/L (136-145); Total Protein,Serum 8.6 g/dl (6.3-8.2)
== END 2025-08-05 23:59 | disposition home or self-care (01) ==
LOC: LAB 15:16
PROVIDERS: PCP Nurse Practitioner; Visit Provider Nurse Practitioner Family
DX: K70.30 Alcoholic cirrhosis of liver without ascites (principal)
CPT/HCPCS: 36415; 80053; 82140